=== PATIENT | male | born 1960 | race Caucasian/White ===

== ENCOUNTER 2025-06-17 22:53 | Emergency (ER) | payer SELFPAY ==
[~2025-06-17] VITALS: Ht 190.5 cm; Wt 113.6 kg
[2025-06-18 02:07] LABS: PLATELET COUNT (AUTO) 351 K/uL (150-450); RED BLOOD CELL COUNT(AUTO) 3.66 MIL/uL (4.50-5.90); RED CELL DISTRIBUTION WIDTH 16.6 % (11.5-14.5); WHITE BLOOD COUNT (AUTO) 7.5 K/uL (4.5-11.0)
[2025-06-18 02:18] LABS: CALCIUM, TOTAL 9.1 mg/dL (8.8-10.5); CREATININE 0.65 mg/dL (0.60-1.30); GLOMERULAR FILTR. RATE CALC > 60 mL/min (>60); GLUCOSE,RANDOM 118 mg/dL (70-110); SODIUM SERUM 132 mmol/L (136-145); UREA NITROGEN, BLOOD 10 mg/dL (7-18)
[2025-06-18 02:29] LABS: LACTIC ACID 2.6 mmol/L (0.4-2.0)
[2025-06-18 02:34] LABS: ASPARTATE AMINOTRANSFERASE 28 U/L (15-37); CREATINE KINASE, TOTAL ONLY 97 U/L (39-308); TOTAL PROTEIN, SERUM 9.7 g/dL (6.4-8.2)
[2025-06-18] MEDS: PIPERACILLIN/TAZO 3.375 GM/D5W 50 ML IV ONE (02:41)
[2025-06-18] MEDS ORDERED: SODIUM CHLORIDE 0.9% 100 ML ONE (02:54)
[2025-06-18] MEDS ORDERED: IOHEXOL 350 MG/ML 100 ML VIAL ONE (02:54)
[2025-06-18] MEDS: VANCOMYCIN 1GM/WATER(PEG/NADA) 200 ML IV ONE (03:15)
[2025-06-18] MEDS: SODIUM CHLORIDE 0.9% 1,000 ML IV ONE (03:19)
[2025-06-18 06:25] VITALS: BP 138/77; PULSE 72; RESP 18; TEMP 98.105288; O2SAT 99
== END 2025-06-18 10:40 | disposition admitted as inpatient to this hospital (09) ==
LOC: EMS 23:01 → UNDOADMIN 06-18 02:56 → EDH 06-18 02:56
DX: L03.115 Cellulitis of right lower limb (principal); E87.20 Acidosis, unspecified; F12.90 Cannabis use, unspecified, uncomplicated
CPT/HCPCS: 80048; 80076; 87205; 82550; 85025; 85610; 87040; 87186; 87070; 84145; 99285; 96365; 73701; 93971; 96367; 96366; 83605; 36415; Q9967; J2543; J7050; J3490